=== PATIENT | male | born 1940 | race Caucasian/White ===

== ENCOUNTER 2023-06-01 09:23 | Inpatient (IN) | payer OTHER ==
[2023-06-01 09:49] LABS: Absolute Lymphocytes (CBC) 0.4 K/uL (0.7-4.9); Absolute Monocytes 0.7 K/uL (0.1-1.3); Basophils % 0.2 % (0-1.3); Hematocrit 39.8 % (39.6-49.0); Hemoglobin 13.4 g/dL (13.6-17.9); Lymphocytes % 5.5 % (15.3-44.8); MCH 30.7 pg (27.0-35.0); MCHC 33.8 g/dL (32.0-36.0); MCV 90.9 fL (80-100); MPV 8.7 fL (7.6-11.3); Monocytes % 8.6 % (3.3-12.3); Neutrophils % 85.7 % (41.7-73.7); Nucleated Red Blood Cells % 0.2 % (0-0); Platelets 175 thou/uL (152-406); RBC Red Blood Cell Count 4.37 M/uL (4.33-5.43); Red Cell Distribution Width 14.4 % (12.1-15.2)
[2023-06-01 10:04] LABS: Albumin 3.4 g/dL (3.4-5.0); Albumin/Globulin Ratio 0.9 (1.1-1.8); Anion Gap 6.7 mEq/L (5.0-15.0); Bilirubin Total 0.5 mg/dL (0.2-1.0); Globulin 3.6 g/dL (2.3-3.5); Potassium 3.7 mEq/L (3.5-5.1)
[2023-06-01] MEDS ORDERED: KETOROLAC 30 MG/ML INJ ONE (10:10)
[2023-06-01] MEDS ORDERED: FAMOTIDINE 20 MG/2 ML VIAL IV ONE (10:10)
[2023-06-01] MEDS ORDERED: NA CHLORIDE 0.9% 500 ML ONE (10:10)
--- NOTE | 2023-06-01 10:36 | RAD REPORT ---
EXAM DESCRIPTION: CTAbdomen Pelvis W Contrast - 06/01/2023 10:25 am CLINICAL HISTORY: ABD PAIN COMPARISON: No comparisons TECHNIQUE: CT of the abdomen and pelvis was performed. All CT scans are performed using dose optimization technique as appropriate and may include automated exposure control or mA/KV adjustment according to patient size. FINDINGS: Lower chest: Nonspecific pleural thickening and small pleural calcifications posteriorly i n the lung bases. Surgical changes at the gastroesophageal junction. Liver: No acute abnormality or suspicious lesions. Biliary: Cholecystectomy. Extrahepatic biliary duct dilatation measuring 14 mm Stomach: No significant focal abnormality. Duodenum: No significant focal abnormality. Pancreas: No significant abnormality. Spleen: No significant abnormality. Adrenal: No suspicious lesions. Kidney/ureter: No hydronephrosis. Nonobstructing stones in the right kidney. Too small to characteriz e and/or benign appearing renal lesions are noted. Retroperitoneum: No retroperitoneal adenopathy. Vascular: No aneurysm. Bowel: Wall thickening at the ascending colon, transverse colon, and descending colon present. The si gmoid and rectum are spared. Diverticulosis without diverticulitis. No appendicitis. Peritoneum: No ascites or free air. Bladder: Grossly unremarkable. Reproductive: Mild prostatomegaly. Bones: No acute fracture. Other: n/a IMPRESSION: Colitis extending from the ascending through the descending colon likely reflecting eith er infection, inflammation, or ischemic etiologies. No bowel obstruction. The sigmoid and rectum are spared. Cholecystectomy. Extrahepatic biliary duct dilatation may be related to the postcholecystectomy state . Correlate with LFTs. If abnormal, could consider either ERCP or MRCP for further evaluation.
--- NOTE | 2023-06-01 10:43 | ER ---
Nurse's Notes [facility] Name: Boyd Jeong Age: 83 yrs Sex: Male : 1940 Arrival Date: 06/01/2023 Time: 09:23 Bed 14 Private MD: Richar Lofton C Diagnosis: Colitis Presentation: 05/31 09:27 Chief complaint: Spouse and/or significant other states: Abdominal pain since Friday. mi1 09:27 Coronavirus screen: Vaccine status: Patient reports receiving the 2nd dose of the covid nj1 vaccine. Ebola Screen: Patient denies travel to an Ebola-affected area in the 21 days before illness onset. Initial Sepsis Screen: Does the patient meet any 2 criteria? No. Patient's initial sepsis screen is negative. Does the patient have a suspected source of infection? No. Patient's initial sepsis screen is negative. Risk Assessment: Do you want to hurt yourself or someone else? Patient reports no desire to harm self or others. Onset of symptoms was May 30, 2023. 09:27 Method Of Arrival: Wheelchair [facility] 09:27 Acuity: JASON 3 nj1 Historical: - Allergies: 09:34 No Known Allergies; nj1 - PMHx: 09:34 Anxiety; Hypertensive disorder; Hypercholesterolemia; nj1 - PSHx: 09:34 Hernia repair; nj1 - Immunization history:: Client reports receiving the 2nd dose of the Covid vaccine. - Infectious Disease History:: Denies. - Social history:: Smoking status: Patient denies any tobacco usage or history of. Screenin:25 [facility] ED Fall Risk Assessment (Adult) History of falling in the last 3 months, ph including since admission No falls in past 3 months (0 pts) Confusion or Disorientation No (0 pts) Intoxicated or Sedated No (0 pts) Impaired Gait No (0 pts) Mobility Assist Device Used Yes (1 pt) Altered Elimination No (0 pt) Score/Fall Risk Level 0 - 2 = Low Risk Oriented to surroundings, Maintained a safe environment, Hourly rounding (assess needs \T\ fall precautionary measures) done. Abuse screen: Denies threats or abuse. Denies injuries from another. Nutritional screening: No deficits noted. Tuberculosis screening: No symptoms or risk factors identified. Assessment: 10:10 General: Appears in no apparent distress. Behavior is calm, cooperative, Denies fever. ph Pain: Complains of pain in right lower quadrant and left lower quadrant. Neuro: Level of Consciousness is awake, alert, obeys commands, Oriented to person, place, time, situation. Cardiovascular: Capillary refill < 3 seconds in bilateral fingers Patient's skin is warm and dry. Respiratory: Airway is patent Respiratory effort is even, unlabored. GI: Abdomen is non-distended, Reports lower abdominal pain, constipation, Patient currently denies nausea, vomiting. Derm: Skin is pink, warm \T\ dry. 11:20 Reassessment: Report faxed to second floor, charge nurse notified. ph 11:34 Reassessment: Patient appears in no apparent distress at this time. Patient and/or ph family updated on plan of care and expected duration. Pain level reassessed. Patient is alert, oriented x 3, equal unlabored respirations, skin warm/dry/pink. Vital Signs: 09:27 BP 123 / 67; Pulse 82; Resp 18; Temp 98.1(O); Pulse Ox 94% on R/A; Weight 95.25 kg; nj1 Height 6 ft. 1 in. ; Pain 10/10; 10:39 BP 113 / 67; Pulse 79; Resp 16; Pulse Ox 96% on R/A; mc5 09:27 Body Mass Index 27.71 (95.25 kg, 185.42 cm) nj1 09:27 Pain Scale: Adult [facility] ED Course: 09:26 Patient arrived in ED. mr 09:26 Shannen Ruiz FNP-C is [facility]. kb 09:26 Joseluis Mims MD is Attending Physician. kb 09:26 Richar Lofton MD is Private Physician. mr 09:29 Talisha Domínguez, ANU is Primary Nurse. ph 09:34 Triage completed. nj1 09:34 Arm band placed on right wrist. nj1 09:40 Inserted saline lock: 20 gauge in right antecubital area, using aseptic technique. mc5 Blood collected. 10:09 Warm blanket given. Head of bed elevated. mc5 10:12 PO fluids given. mc5 10:[address] via stretcher. ph 10:26 Patient has correct armband on for positive identification. Placed in gown. Bed in low ph position. Call light in reach. Side rails up X 1. Pulse ox on. NIBP on. Door closed. Warm blanket given. PO fluids given. 10:27 CT Abd/Pelvis - IV Contrast Only In Process Unspecified. EDMS 10:42 Aldair Lofton MD is Hospitalizing Provider. kb 11:34 No provider procedures requiring assistance completed. Patient admitted, IV remains in ph place. Administered Medications: 10:15 Drug: NS 0.9% IV 500 ml IV at bolus once Route: IV; Rate: bolus; Site: right ph antecubital; 10:15 Drug: Famotidine IVP 20 mg IVP once; dilute with 10 mL 0.9% NaCl; give over 2 minutes ph Route: IVP; Site: right antecubital; 10:40 Follow up: Response: No adverse reaction ph 10:15 Drug: Ketorolac IVP 15 mg IVP once Route: IVP; Site: right antecubital; ph 10:40 Follow up: Response: No adverse reaction ph 11:10 Drug: Ciprofloxacin IVPB 400 mg 200 ml IVPB once over 60 mins Volume: 200 ml; Route: ph IVPB; Infused Over: 60 mins; Site: right antecubital; 11:35 Drug: metroNIDAZOLE IVPB 500 mg 100 ml IVPB at 200 ml/hr once over 30 mins Volume: 100 ph ml; Route: IVPB; Rate: 200 ml/hr; Infused Over: 30 mins; Site: right antecubital; Medication: 10:25 VIS not applicable for this client. ph Outcome: 10:42 Decision to Hospitalize by Provider. kb 11:37 Admitted to Med/surg accompanied by tech, family with patient, via wheelchair, room ph 413, 11:37 Condition: stable 11:37 Instructed on the need for admit, 12:05 Patient left the ED. ph Signatures: Dispatcher [employer] EDMS Shannen Ruiz, BUS AND RAIL OPERATOR-C BUS AND RAIL OPERATOR-Ckb Gay Flores, Reg Reg mr Talisha Domínguez RN RN Roxanne Walsh RN RN Suzanna Gibbs 5 Corrections: (The following items were deleted from the chart) 09:52 09:52 Inserted saline lock: 20 gauge in right antecubital area, using aseptic 5 technique. Blood collected. 5
--- NOTE | 2023-06-01 10:43 | EDPHYS ---
Physician Documentation [facility] Name: Boyd Jeong Age: 83 yrs Sex: Male : 1940 Arrival Date: 06/01/2023 Time: 09:23 Bed 14 Private MD: Richar Lofton C ED Physician Joseluis Mims HPI: 05/31 09:36 This 83 yrs old Male presents to ER via Wheelchair with complaints of Constipation. kb 09:36 Pt is an 83 year old male who presents for lower abd pain that started 3 days ago. kb Denies n/v/d, fever. Reports small bowel movements. No aggravating or alleviating factors. . Historical: - Allergies: 09:34 No Known Allergies; nj1 - PMHx: 09:34 Anxiety; Hypertensive disorder; Hypercholesterolemia; nj1 - PSHx: 09:34 Hernia repair; nj1 - Immunization history:: Client reports receiving the 2nd dose of the Covid vaccine. - Infectious Disease History:: Denies. - Social history:: Smoking status: Patient denies any tobacco usage or history of. ROS: 09:35 Constitutional: As per HPI kb Exam: 09:35 Constitutional: This is a well developed, well nourished patient who is awake, alert, kb and in no acute distress. Head/Face: Normocephalic, atraumatic. ENT: Moist Mucous membranes Cardiovascular: Regular rate Respiratory: Respirations even and unlabored. No increased work of breathing. Talking in full sentences Skin: Warm, dry with normal turgor. Normal color. MS/ Extremity: Pulses equal, no cyanosis. Neurovascular intact. Full, normal range of motion. Neuro: Awake and alert, GCS 15, oriented to person, place, time, and situation. Moves all extremities. Normal gait. 09:35 Abdomen/GI: Inspection: abdomen appears normal, Bowel sounds: normal, Palpation: soft, in all quadrants, moderate abdominal tenderness, in the right upper quadrant and right lower quadrant, Vital Signs: 09:27 BP 123 / 67; Pulse 82; Resp 18; Temp 98.1(O); Pulse Ox 94% on R/A; Weight 95.25 kg; nj1 Height 6 ft. 1 in. ; Pain 10/10; 10:39 BP 113 / 67; Pulse 79; Resp 16; Pulse Ox 96% on R/A; mc5 09:27 Body Mass Index 27.71 (95.25 kg, 185.42 cm) nj1 09:27 Pain Scale: Adult nj1 MDM: 09:26 Patient medically screened. kb 09:35 Data reviewed: vital signs, nurses notes. kb 09:37 Differential diagnosis: appendicitis, bowel obstruction, cholecystitis, Cholelithiasis, kb diverticulitis, gastritis, non-specific abd pain, pancreatitis, constipation. 09:37 Historians other than the Patient: Spouse/Significant Other: . kb 10:41 Consideration of Admission/Observation Patient was admitted/placed on observation. kb Escalation of care including admission/observation considered. Management of patient was discussed with the following: Primary Care Provider: Dr Lofton accepts pt for admission. Counseling: I had a detailed discussion with the patient and/or guardian regarding the historical points, exam findings, and any diagnostic results supporting the discharge/admit diagnosis, lab results, radiology results, the need for further work-up and treatment in the hospital. 05/31 09:31 Order name: CBC with Diff; Complete Time: 11:09 kb 05/31 09:31 Order name: CMP; Complete Time: 10:05 kb 05/31 09:31 Order name: Lipase; Complete Time: 10:05 kb 05/31 09:31 Order name: Urinalysis w/ reflexes kb 05/31 09:56 Order name: CBC Smear Scan; Complete Time: 11:09 EDMS 05/31 10:37 Order name: Lactate w/ 2H reflex if indic.; Complete Time: 11:55 kb 05/31 10:37 Order name: Blood Culture Adult (2) kb 05/31 09:31 Order name: CT Abd/Pelvis - IV Contrast Only; Complete Time: 10:36 kb 05/31 09:31 Order name: IV Saline Lock; Complete Time: 09:45 kb 05/31 09:31 Order name: Labs collected and sent; Complete Time: 09:45 kb Administered Medications: 10:15 Drug: NS 0.9% IV 500 ml IV at bolus once Route: IV; Rate: bolus; Site: right ph antecubital; 10:15 Drug: Famotidine IVP 20 mg IVP once; dilute with 10 mL 0.9% NaCl; give over 2 minutes ph Route: IVP; Site: right antecubital; 10:40 Follow up: Response: No adverse reaction ph 10:15 Drug: Ketorolac IVP 15 mg IVP once Route: IVP; Site: right antecubital; ph 10:40 Follow up: Response: No adverse reaction ph 11:10 Drug: Ciprofloxacin IVPB 400 mg 200 ml IVPB once over 60 mins Volume: 200 ml; Route: ph IVPB; Infused Over: 60 mins; Site: right antecubital; 11:35 Drug: metroNIDAZOLE IVPB 500 mg 100 ml IVPB at 200 ml/hr once over 30 mins Volume: 100 ph ml; Route: IVPB; Rate: 200 ml/hr; Infused Over: 30 mins; Site: right antecubital; Disposition Summary: 06/01/23 10:42 Hospitalization Ordered Notes: Hospitalization Status: Inpatient Admission kb Provider: Aldair Lofton Location: Telemetry/MedSurg (Inpatient) kb Condition: Stable kb Problem: new kb Symptoms: are unchanged kb Bed/Room Type: Standard Room Assignment: [facility](06/01/23 10:50) bd Diagnosis - Colitis kb Forms: - Medication Reconciliation Form kb - SBAR form kb - Leadership Thank You Letter kb Signatures: Dispatcher [employer] EDShannen Rdz, TERE-C QUALITY RN-CkJennifer Yoon Patricia RN RN Roxanne Walsh RN RN nj1 Corrections: (The following items were deleted from the chart) 10:50 10:42 kb bd
[2023-06-01] MEDS ORDERED: CIPROFLOXACIN 400mg IV 400 MG/200 ML BAG IV ONE (10:44)
[2023-06-01] MEDS ORDERED: METRONIDAZOLE 500mg IVPB 500 MG/100 ML BAG IV ONE (10:45)
[2023-06-01 11:07] LABS: Platelet Estimate ADEQ; White Blood Cell Scan OK (OK)
[2023-06-01 11:08] LABS: Blood Morphology Comment NOTED (NOT SEEN); Stomatocytes 1+
[2023-06-01] MEDS ORDERED: ONDANSETRON 4 MG/2 ML VIAL IV PRN (11:45)
[2023-06-01] MEDS: NA CHLORIDE 0.9% 1,000 ML IV SCH (12:50)
[2023-06-01] MEDS: METRONIDAZOLE 500mg IVPB 500 MG/100 ML BAG IV SCH (16:30)
[2023-06-01] MEDS: CIPROFLOXACIN 400mg IV 400 MG/200 ML BAG IV SCH (20:10)
[2023-06-01] MEDS: ACETAMINOPHEN 500 MG TAB PO PRN (20:53)
[2023-06-01] MEDS: TRAZODONE 50 MG TABLET PO PRN (23:05)
[2023-06-02 06:47] LABS: Absolute Eosinophils 0.1 K/uL (0-0.5); Absolute Lymphocytes (CBC) 0.8 K/uL (0.7-4.9); Absolute Monocytes 0.7 K/uL (0.1-1.3); Absolute Neutrophil 3.7 K/uL (1.8-8.0); Basophils % 0.2 % (0-1.3); Eosinophils % 1.2 % (0-4.4); Hematocrit 34.2 % (39.6-49.0); Hemoglobin 11.4 g/dL (13.6-17.9); Lymphocytes % 15.2 % (15.3-44.8); MCH 30.7 pg (27.0-35.0); MCHC 33.2 g/dL (32.0-36.0); MCV 92.4 fL (80-100); MPV 9.5 fL (7.6-11.3); Monocytes % 13.3 % (3.3-12.3); Neutrophils % 70.1 % (41.7-73.7); Platelets 142 thou/uL (152-406); Red Cell Distribution Width 14.3 % (12.1-15.2)
[2023-06-02 07:03] LABS: AST/SGOT 12 U/L (15-37); Albumin 2.6 g/dL (3.4-5.0); Albumin/Globulin Ratio 0.9 (1.1-1.8); Alkaline Phosphatase 55 U/L (45-117); Anion Gap 7.4 mEq/L (5.0-15.0); BUN Blood Urea Nitrogen 17 mg/dL (7-18); Bicarbonate 23 mEq/L (21-32); Bilirubin Direct 0.1 mg/dL (0-0.2); Bilirubin Indirect, Calculated 0.4 mg/dL (0.2-0.8); Bilirubin Total 0.5 mg/dL (0.2-1.0); Glomerular Filtration Rate 71 ml/min (=/>90); Glucose Level 96 mg/dL (74-106); Lipase 19 U/L (13-75); Potassium 3.4 mEq/L (3.5-5.1); Protein, Total 5.6 g/dL (6.4-8.2); Sodium Level 139 mEq/L (136-145)
[2023-06-02 07:06] LABS: ALT/SGPT < 10 U/L (16-61)
[2023-06-02] MEDS: SERTRALINE HCL 100 MG TAB PO SCH (08:02)
[2023-06-02] MEDS: ENOXAPARIN 40 MG/0.4 ML SQ SCH (08:02)
[2023-06-02 12:46] VITALS: BMI 27.7
[2023-06-02 13:28] LABS: C.diff Antigen/Toxin Ag neg : Tox neg (NEG : NEG); CDIFF INTERNAL NEG CONTROL White Background (WHITE BKGD); STOOL CONSISTENCY Formed/Solid (soft)
[2023-06-02] MEDS: POTASSIUM 25 MEQ EFFERV TAB PO ONE (18:04)
[2023-06-02] MEDS: ATORVASTATIN 20 MG TAB PO SCH (20:14)
[2023-06-02 23:06] VITALS: O2SAT 97
--- NOTE | 2023-06-03 04:30 | HP ---
Date of Admission: 06/01/2023 Chief Complaint: Abdominal pain, constipation, and diarrhea. History Of Present Illness: This is an 83-year-old very pleasant male patient, who lives at home, wa s doing fine in his normal usual state of health until last few days. He started to have abdominal p ain, more on the right side than the left side, associated with some constipation for last few days a nd as of yesterday, he started to have diarrhea. Denies any blood in stool. Denies any fever, but f elt like having chills. No nausea, no vomiting. After this complaints, he came into emergency room yesterday and he was evaluated in the ER and after he was evaluated, emergency room provider contacte nneka collier requesting admission to the hospital with diffuse colitis type of problem. Workup done in the e mergency room yesterday was reviewed with the emergency room provider. She contacted me yesterday an d decision was made to admit the patient to hospital as inpatient. The patient was started on IV flu id and IV antibiotics and this morning when I saw him, he is feeling better than yesterday. No new c omplaints reported overnight. Allergies: NO KNOWN ALLERGIES. Medications: Atorvastatin 20 mg daily at bedtime, hydrochlorothiazide 12.5 mg daily, losartan 50 mg daily, sertraline 100 mg daily, and trazodone 50 mg takes half to 1 tablet daily at bedtime. Review of Systems: GI: As mentioned above. All other systems reviewed and negative. Past Medical History: Significant for hypertension, hyperlipidemia, benign prostatic hypertrophy, os teoarthritis at multiple sites, anxiety, insomnia, chronic kidney disease stage 3A, lumbar radiculopa thy, benign prostatic hypertrophy, and renal cyst. Past Surgical History: Cataract surgery, inguinal hernia repair surgery for gastric ulcer, and back surgery in form of decompression of L4-5 done on August 30, 2021. Family History: Father , had Alzheimer disease. Mother , had stroke. Brother , had jared er cancer and sister with congestive heart failure. Social History: Negative for smoking. Use of alcohol occasional. Physical Examination: Vital Signs: Height 6 feet 1 inch, weight 210 pounds, temperature 96.8, pulse 53, respiratory rate 1 8, blood pressure 104/57, oxygen saturation 95%. General: Awake, alert, oriented, not in distress. HEENT: Head atraumatic, normocephalic. Conjunctivae nonerythematous. Sclerae white. Mouth, no thr ush or edema noted. Ears/Nose, no mass, lesion, discharge noted. Neck: Supple. No JVD, lymph nodes, bruit, thyromegaly noted. Lungs: Bilateral good equal air entry. Clear to auscultation. No rhonchi. No rales. Heart: Normal heart sounds, no murmur or gallop. Abdomen: Soft. Bowel sounds normal. No guarding. No rigidity. No distention. The patient does h ave tenderness over bilateral anterior abdomen, more so on right side than the left side. No rebound tenderness. No hepatosplenomegaly. No bruit. Extremities: No leg edema. No calf tenderness. Skin: No rash, ulcer, cellulitis. Lymphatics: No lymph node enlargement in neck, supraclavicular, infraclavicular region. Neuro: No focal neurological deficit. Chest: Unremarkable. External Genitalia: Deferred. Rectal: Deferred. Laboratory Data: Yesterday, white count 8.2, hemoglobin 13.4, platelets 175. This morning, white co unt 5.3, hemoglobin 11.4, platelets 142. Yesterday, chemistry shows sodium 138, potassium 3.7, chlor yamilex 111, bicarb 24, BUN 17, creatinine 1.32, glucose 119. Liver function test unremarkable. Lipase 27. This morning, sodium 139, potassium 3.4, chloride 112, bicarb 23, BUN 17, creatinine 1.04, gluco se 96. Liver function test unremarkable. Lipase 19. CAT scan of abdomen and pelvis shows extensive colitis involving colon from ascending colon throughout the colon to the descending colon. No evide nce of any complications. Impression: 1.Colitis. 2.Hypokalemia. 3.Chronic kidney disease stage 3A. 4.Hypertension. 5.Hyperlipidemia. 6.Osteoarthritis, multiple sites. 7.Insomnia. 8.Generalized anxiety disorder. 9.Renal cyst. Plan: We will go ahead and admit the patient to hospital for further evaluation and management of th is problem. The patient is appropriate for inpatient and [facility] For colitis, empiric antibiotics, Cipro and metronidazole, were started yesterday in the emergenc y room and we will continue that. We will also continue IV fluid. Stool for C. diff was ordered mena patel, which came back negative. The patient was on liquid diet, I have advance it to 2 g sodium diet. Ambulation was encouraged. DVT prophylaxis will be given using Lovenox. For hypertension, we will hold his blood pressure medication considering vital signs this morning. Monitor blood pressure and at appropriate time, we will restart his blood pressure medications. For his anxiety, we will contin ue sertraline per order and no need for further intervention. For insomnia, continue his trazodone a s per order and no need for any further intervention. Replace electrolyte per electrolyte replacemen t protocol and will follow up on blood work tomorrow. I will see him tomorrow for followup and possi ble discharge to go home tomorrow. Details and plan of treatment discussed with the patient. Total time spent minutes. JOHN/JENNY Voice ID: [id number]
[2023-06-03 07:41] LABS: Anion Gap 6.1 mEq/L (5.0-15.0); Magnesium 1.9 mg/dL (1.6-2.4); Potassium 4.1 mEq/L (3.5-5.1)
[2023-06-03 07:46] LABS: Absolute Eosinophils 0.1 K/uL (0-0.5); Absolute Lymphocytes (CBC) 0.7 K/uL (0.7-4.9); Absolute Monocytes 0.5 K/uL (0.1-1.3); Absolute Neutrophil 2.7 K/uL (1.8-8.0); Basophils % 0.3 % (0-1.3); Hematocrit 33.4 % (39.6-49.0); Hemoglobin 11.3 g/dL (13.6-17.9); MCHC 33.9 g/dL (32.0-36.0); MCV 91.3 fL (80-100); MPV 8.9 fL (7.6-11.3); Monocytes % 13.1 % (3.3-12.3); Neutrophils % 65.6 % (41.7-73.7); Nucleated Red Blood Cells % 0.1 % (0-0); Platelets 162 thou/uL (152-406); RBC Red Blood Cell Count 3.66 M/uL (4.33-5.43); Red Cell Distribution Width 14.1 % (12.1-15.2)
[2023-06-03 09:43] VITALS: BP 139/75; TEMP 98.2
--- NOTE | 2023-06-03 19:27 | DS ---
Date of Discharge: 06/03/2023 Disposition: Discharged to go home. Physical Examination: HEENT: Unremarkable. Lungs: Clear to auscultation. Heart: Sounds normal. Abdomen: Soft. Bowel sounds normal. No guarding, rigidity, tenderness, distention. Extremities: No leg edema. Laboratory Data: Upon admission, white count 8.2, hemoglobin 13.4, platelets 175. Yesterday, platel et was 142. Today, white count 4.1, hemoglobin 11.3, platelets 162. For chemistry, upon admission, sodium 138, potassium 3.7, chloride 111, bicarb 24, BUN 17, creatinine 1.32, glucose 119. Liver func tion tests unremarkable. Today, sodium 140, potassium 4.1, chloride 113, bicarb 25, BUN 14, creatini ne 1.02, glucose 95, magnesium 1.9. Hospital Course: This is an 83-year-old very pleasant male patient, admitted to the hospital with co mplaints of abdominal pain, constipation, and diarrhea. Please see dictated H and P for more informa tion. After the patient was evaluated in the emergency room, he was admitted to the hospital with si gnificant colitis problem involving almost entire colon from ascending colon all the way down to desc ending colon. He was started on IV Cipro and IV metronidazole and IV fluid. Initially, he was on li quid diet. Subsequently, we advanced him to 2 g sodium diet. He started ambulating very well. His abdominal pain has improved significantly and today abdominal exam was unremarkable. His stool for C . diff was ordered which came back negative. Today, decision was made to discharge the patient to go home since he has improved significantly with following discharge medications and instructions. Final Diagnoses: 1.Colitis. 2.Hypokalemia. 3.Anemia, unspecified. 4.Thrombocytopenia. 5.Chronic kidney disease, stage IIIA. 6.Hypertension. 7.Hyperlipidemia. 8.Osteoarthritis, multiple sites. 9.Insomnia. 10.Generalized anxiety disorder. 11.Renal cyst. Discharge Medications And Instructions: 1.Continue all prior home medication. 2.Stop hydrochlorothiazide. 3.Start Cipro 500 mg 1 tablet by mouth 2 times a day with food for 10 days. 4.Metronidazole 500 mg 3 times a day with food for 10 days. 5.Follow up at my office next week. Total time spent minutes. JOHN/MODL Voice ID: [id number] Report ID: [id number]
== END 2023-06-03 09:30 | disposition home or self-care (01) | DRG 392 ==
LOC: ER 09:23 → SUPCPDRO 09:23 → ERHOLD 10:43 → 4TH 11:24
PROVIDERS: ADMIT Internal Medicine; ATTEND Internal Medicine
DX: K52.9 Noninfective gastroenteritis and colitis, unspecified (principal); F41.1 Generalized anxiety disorder; K59.00 Constipation, unspecified; E87.6 Hypokalemia; I12.9 Hypertensive chronic kidney disease with stage 1 through stage 4 chronic kidney disease, or unspecified chronic kidney disease; N18.31 Chronic kidney disease, stage 3a; D63.1 Anemia in chronic kidney disease; M19.09 Primary osteoarthritis, other specified site; E78.00 Pure hypercholesterolemia, unspecified; G47.00 Insomnia, unspecified; N28.1 Cyst of kidney, acquired; N40.0 Benign prostatic hyperplasia without lower urinary tract symptoms; Z79.899 Other long term (current) drug therapy
CPT/HCPCS: 36415; 74177; 80048; 80053; 80076; 83605; 83690; 83735; 85025; 87040; 87324; 96374; 96375; 99285; J0744; J1650; J7030; J7040; Q9967